=== PATIENT | male | born 1965 | race Caucasian/White ===

== ENCOUNTER → 2018-09-15 | Outpatient (CLI) | payer OTHER ==
--- NOTE | 2018-09-15 09:59 | MR ---
EXAMINATION TYPE: MR cervical spine wo con DATE OF EXAM: 09/15/2018 COMPARISON: None HISTORY: Cervicalgia, VERA TECHNIQUE: Multiplanar, multisequence images of the cervical spine were acquired. C2-C3: No evidence for degenerative disc disease. No disc bulge/herniation or protrusion. No Canal stenosis. Foramina are patent bilaterally. C3-C4: No evidence for degenerative disc disease. No disc bulge/herniation or protrusion. No Canal stenosis. Foramina are patent bilaterally. C4-C5: There is moderate degenerative disc disease with posterior spondylosis. Uncovertebral joint hy pertrophy is noted and there is mild facet arthropathy with mild bilateral foraminal encroachment. Br oad-based central disc bulging or protrusion capped by spur results in mild effacement of thecal sac and mild central stenosis. C5-C6: Moderate generalized degenerative disc disease with posterior spondylosis and uncovertebral danielle int projecting. Mild bilateral foraminal encroachment. No Canal stenosis. C6-C7: Degenerative disc disease. Mild bilateral uncovertebral joint hypertrophy and foraminal encroa chment. No canal stenosis or focal herniation. Vertebral body hemangioma C6. C7-T1: No evidence for degenerative disc disease. No disc bulge/herniation or protrusion. No Canal stenosis. Foramina are patent bilaterally. Cervical segments are intact. There is normal alignment. Cervical spinal cord is of normal signal. Cerebellar tonsils low-lying measuring approximately 8 mm below the foramen magnum. Correlate for Chi pancho malformation. Slight curvature of the cervical thoracic spine noted. IMPRESSION: 1. Multilevel degenerative disc disease with multilevel posterior cervical spondylosis and multilevel mild foraminal encroachment. Mild central stenosis C4-C5. 2. There is evidence of a Chiari malformation. MRI of the brain recommended.
== END | disposition home or self-care (01) ==
LOC: RADMRIMAIN 08:49
PROVIDERS: ATTEND Family Medicine
DX: M48.02 Spinal stenosis, cervical region (principal); M50.321 Other cervical disc degeneration at C4-C5 level; M47.812 Spondylosis without myelopathy or radiculopathy, cervical region
CPT/HCPCS: 72141

== ENCOUNTER → 2020-10-09 | Outpatient (CLI) | payer OTHER ==
--- NOTE | 2020-10-09 14:04 | MR ---
EXAMINATION TYPE: MR brain/cspine wo/w DATE OF EXAM: 10/09/2020 COMPARISON: MR cervical spine 09/15/2018 HISTORY: Chiari malformation, tremors, disease of the WOUND CARE TECHNICIAN TECHNIQUE: Multiplanar, multisequence images of the brain and brainstem, cervical spine is performed without and with IV contrast, utilizing 7 mL intravenous Gadavist . FINDINGS: Diffusion weighted images demonstrate no evidence of a recent infarct or other diffusion ab normality. There is no extra-axial fluid collection or significant white matter signal abnormality. The ventricular system and cisternal spaces are normal in size and appearance. The brain volume is age appropriate. Midline structures demonstrate stable inferior appearance of the cerebellar tonsils right greater mickey n left, cerebellar tonsil on the right approximately 8-9 mm inferior position relative to the foramen magnum, similar to prior cervical MRI, the clivus appears somewhat foreshortened and the cerebellar tonsils crowd the lingula. The craniocervical junction appears within normal limits. Post contrast images demonstrate no abnormal enhancement. The dural venous sinuses appear patent. The visualized si nuses are remarkable for inflammatory change in ethmoid air cells, mucosal thickening in the frontal sinuses and the globes are intact. Cervical spine MRI shows some motion. There is stable degenerative disc changes. Cervical cord signal is stable. There is a slight spinal curvature. Spondylosis is most pronounced at C4-5, C5-6 with ass ociated loss of disc height and signal, posterior extension endplate disc complex at C4-5 and C5-6 ca uses some mild anterior mass effect on the thecal sac, some uncovertebral joint hypertrophy results i n some foraminal encroachment which is mild bilaterally. These levels. Cervical vertebral bodies show preserved height and bone marrow signal. IMPRESSION: Chiari 1 malformation. Degenerative disc disease. Mild sinus disease.
== END ==
LOC: RADMRIMAIN 08:36
PROVIDERS: ATTEND Family Medicine
DX: G93.5 Compression of brain (principal); M50.30 Other cervical disc degeneration, unspecified cervical region
CPT/HCPCS: 70553; 72156; A9585

== ENCOUNTER → 2025-02-28 | Outpatient (CLI) | payer MEDICARE ==
--- NOTE | 2025-02-28 08:55 | XR ---
EXAMINATION TYPE: XR lumbar spine 3V DATE OF EXAM: 02/28/2025 8:45 AM COMPARISON: None CLINICAL INDICATION: Male, 59 years old with history of M54.50 Low back pain; PHH, pain FINDINGS: Slight rightward tracheal shift. 5 lumbar type vertebral bodies. Moderate hypertrophic facet arthropa thy mid to lower lumbar spine. Moderate degenerative disc disease L5-S1 and mild at L4-L5. Vertebral body heights are preserved and alignment is maintained. IMPRESSION: 1. Moderate facet arthropathy mid to lower lumbar spine. No vertebral compression collapse or malalig nment. 2. Moderate degenerative disc disease L5-S1 and mild at L4-L5. [facility], Workstation: [id number], 02/28/2025 8:52 AM
== END | disposition home or self-care (01) ==
LOC: RADXRMAIN 08:24
PROVIDERS: ATTEND Family Medicine
DX: M51.372 Other intervertebral disc degeneration, lumbosacral region with discogenic back pain and lower extremity pain (principal); M47.816 Spondylosis without myelopathy or radiculopathy, lumbar region
CPT/HCPCS: 72100